=== PATIENT | male | born 1965 | race Hispanic/Latino ===

== ENCOUNTER 2019-02-20 21:37 | Emergency (ER) | payer MEDICARE, OTHER ==
[2019-02-20] MEDS ORDERED: KETOROLAC TROMETHAMINE 60 MG/2 ML VIAL ONE (22:48)
[2019-02-20] MEDS ORDERED: CYCLOBENZAPRINE HCL 10 MG TABLET ONE (22:48)
== END 2019-02-21 00:29 | disposition home or self-care (01) ==
LOC: EDH 21:37
DX: M54.40 Lumbago with sciatica, unspecified side (principal); I10 Essential (primary) hypertension; F32.9 Major depressive disorder, single episode, unspecified; W01.0XXA Fall on same level from slipping, tripping and stumbling without subsequent striking against object, initial encounter; Y93.01 Activity, walking, marching and hiking; Y92.89 Other specified places as the place of occurrence of the external cause; Y99.8 Other external cause status
CPT/HCPCS: 74176; 96372; 99284; J1885